=== PATIENT | female | born 1955 | race Caucasian/White ===

== ENCOUNTER → 2025-09-11 09:11 | Outpatient (REF) | payer MEDICARE, OTHER, SELFPAY | LOC: RAD 09:11 | PROVIDERS: ATTENDING PHYSICIAN Podiatrist Foot & Ankle Surgery; FAMILY PHYSICIAN Internal Medicine | DX: L97.523 Non-pressure chronic ulcer of other part of left foot with necrosis of muscle (principal); I73.89 Other specified peripheral vascular diseases | CPT/HCPCS: 73630; 93922; 93925 ==